=== PATIENT | male | born 1945 | race Caucasian/White ===

== ENCOUNTER 2016-11-28 08:10 | Day surgery (SDC) | payer BC ==
--- NOTE | ~2016-11-28 | EGD ---
EGD REPORT [facility] [address] [address] NAME: GADIEL CALI : [birth year] STATUS : REG [facility]#: [id number] AGE: 71 ADM/REG DATE : 11/28/16 MR#: [id number] REPORT SERV DATE: 11/28/16 DICTATED BY: SAMUEL SANTACRUZ DATE: 11/28/16 REPORT STATUS : Draft TRANSCRIBED BY: [facility] DATE: 11/28/16 Endoscopy Center Patient Name: Gadiel Cali Date of : 1945 Attending MD: SAMUEL SANTARCUZ MD Procedure Date No Time: 11/28/2016 Procedure: Upper GI endoscopy Indications: Iron deficiency anemia Referring MD: Pito Gonsalez Medicines: Propofol per Anesthesia Complications: No immediate complications. Procedure: Pre-Anesthesia Assessment: - ASA Grade Assessment: III - A patient with severe systemic disease. After obtaining informed consent, the endoscope was passed under direct vision. Throughout the procedure, the patient's blood pressure, pulse, and oxygen saturations were monitored continuously. The GIF [id number] was introduced through the mouth, and advanced to the second part of duodenum. The upper GI endoscopy was accomplished without difficulty. The patient tolerated the procedure well. Findings: The examined esophagus was normal. Diffuse mild inflammation characterized by erosions and erythema was found in the stomach. Biopsies were taken with a cold forceps for histology. The examined duodenum was normal. Biopsies were taken with a cold forceps for histology. Impression: - Normal esophagus. - Chronic gastritis. Biopsied. - Normal examined duodenum. Biopsied. Recommendation: - Discharge patient to home (ambulatory). Procedure Code(s): --- Professional --- 00801, Esophagogastroduodenoscopy, flexible, transoral; with biopsy, single or multiple Diagnosis Code(s): --- Professional --- K29.50, Unspecified chronic gastritis without bleeding D50.9, Iron deficiency anemia, unspecified EGD REPORT [facility] [address] [place]. [address] NAME: GADIEL CALI : [birth year] STATUS : REG [facility] PAT#: [id number] AGE: 71 ADM/REG DATE : 11/28/16 MR#: [id number] REPORT SERV DATE: 11/28/16 DICTATED BY: SAMUEL SANTACRUZ. DATE: 11/28/16 REPORT STATUS : Draft TRANSCRIBED BY: [employer] DATE: 11/28/16 CPT copyright 2013 [employer] [employer]. All rights reserved. The codes documented in this report are preliminary and upon makeup editor review may be revised to meet current compliance requirements. Samuel Santacruz MD SAMUEL SANTACRUZ MD 11/28/2016 8:52 AM This report has been signed electronically. Number of Addenda: 0 Note Initiated On: 11/28/2016 8:40 AM Scope Withdrawal Time 0 hours 0 minutes 0 seconds [address] [place] [address]
--- NOTE | ~2016-11-28 | EGD ---
EGD REPORT [facility] [address] [address] NAME: GADIEL CALI : [birth year] STATUS : REG [facility]#: [id number] AGE: 71 ADM/REG DATE : 11/28/16 MR#: [id number] REPORT SERV DATE: 11/28/16 DICTATED BY: SAMUEL SANTACRUZ DATE: 11/28/16 REPORT STATUS : Draft [facility]ANSCRIBED BY: [facility] DATE: 11/28/16 Endoscopy Center Patient Name: Gadiel Cali Date of : 1945 Attending MD: SAMUEL SANTACRUZ MD Procedure Date No Time: 11/28/2016 Procedure: Colonoscopy Indications: Iron deficiency anemia Referring MD: Pito Gonsalez Medicines: Propofol per Anesthesia Complications: No immediate complications. Procedure: Pre-Anesthesia Assessment: - ASA Grade Assessment: III - A patient with severe systemic disease. After I obtained informed consent, the scope was passed under direct vision. Throughout the procedure, the patient's blood pressure, pulse, and oxygen saturations were monitored continuously. The CF [id number] was introduced through the anus and advanced to the cecum, identified by appendiceal orifice and ileocecal valve. The colonoscopy was performed without difficulty. Findings: The perianal and digital rectal examinations were normal. Internal hemorrhoids were found, and they were Grade I (internal hemorrhoids that do not prolapse). The colon (entire examined portion) appeared normal. Impression: - Internal hemorrhoids. - The entire examined colon is normal. Recommendation: - Patient has a contact number available for emergencies. The signs and symptoms of potential delayed complications were discussed with the patient. Return to normal activities tomorrow. Written discharge instructions were provided to the patient. - Discharge patient to home (ambulatory). - Return to nurse practitioner in 3 weeks. Procedure Code(s): --- Professional --- 36028, Colonoscopy, flexible, proximal to splenic flexure; diagnostic, with or without collection of specimen(s) by brushing or washing, with or without colon decompression (separate procedure) EGD REPORT [facility] [address] [place] [address]. [address] NAME: GADIEL CALI : [birth year] STATUS : REG [facility] PAT#: [id number] AGE: 71 ADM/REG DATE : 11/28/16 MR#: [id number] REPORT SERV DATE: 11/28/16 DICTATED BY: SAMUEL SANTACRUZ. DATE: 11/28/16 REPORT STATUS : Draft TRANSCRIBED BY: [employer] DATE: 11/28/16 Diagnosis Code(s): --- Professional --- K64.0, First degree hemorrhoids D50.9, Iron deficiency anemia, unspecified CPT copyright 2013 [employer]. All rights reserved. The codes documented in this report are preliminary and upon generator rebuilder review may be revised to meet current compliance requirements. Samuel Santacruz MD SAMUEL SANTACRUZ MD 11/28/2016 9:08 AM This report has been signed electronically. Number of Addenda: 0 Note Initiated On: 11/28/2016 8:38 AM Scope Withdrawal Time 0 hours 7 minutes 56 seconds [address] [place] [address]
[~2016-11-28 08:10] MED LIST: ASAB PO; CO Q-10 PO; COREG6 PO; CRESTOR40 MG PO; GLUCOPHAGE1000 MG PO; GLUCPH PO; K-TABS10 MEQ PO; KEPPRA1000 MG PO; L40 PO; MELATONIN PO; MULTIPLE VIT PO; PRIN5 PO; VITAMIN D31000 UNIT PO
== END 2016-11-28 23:59 | disposition home or self-care (01) ==
LOC: DMU 08:10
PROVIDERS: Internal Medicine Gastroenterology
PROC: 0DJD8ZZ Inspection of Lower Intestinal Tract, Via Natural or Artificial Opening Endoscopic (ICD-10-PCS; principal; 2016-11-28 09:30)
PROC: 0DB68ZZ Excision of Stomach, Via Natural or Artificial Opening Endoscopic (ICD-10-PCS; 2016-11-28 09:30)
DX: K29.50 Unspecified chronic gastritis without bleeding (principal); K64.0 First degree hemorrhoids; D50.9 Iron deficiency anemia, unspecified; I10 Essential (primary) hypertension; E11.9 Type 2 diabetes mellitus without complications; E78.00 Pure hypercholesterolemia, unspecified; G40.909 Epilepsy, unspecified, not intractable, without status epilepticus; Z79.82 Long term (current) use of aspirin; Z79.84 Long term (current) use of oral hypoglycemic drugs; Z79.899 Other long term (current) drug therapy; Z95.1 Presence of aortocoronary bypass graft; Z86.010 Personal history of colon polyps; Z90.89 Acquired absence of other organs; Z98.890 Other specified postprocedural states
CPT/HCPCS: 82962; 88305